=== PATIENT | female | born 1990 | race Caucasian/White ===

== ENCOUNTER 2016-02-15 22:19 | Emergency (ER) | payer OTHER ==
[2016-02-15 22:41] VITALS: BP 124/80; PULSE 86; RESP 18; TEMP 98; O2SAT 95
[2016-02-15] MEDS ORDERED: SUMATRIPTAN SUCCINATE 6 MG/0.5 ML SOL SC ONE ×2 (23:00→23:04)
[2016-02-15] MEDS ORDERED: KETOROLAC TROMETHAMINE 30 MG/ML SOL IM ONE (23:00)
[2016-02-15] MEDS ORDERED: ONDANSETRON 4 MG ODT BU ONE (23:00)
[2016-02-15] MEDS ORDERED: KETOROLAC TROMETHAMINE 30 MG/ML SOL ONE (23:04)
[2016-02-15] MEDS ORDERED: ONDANSETRON 4 MG ODT ONE (23:04)
== END 2016-02-15 23:52 | disposition home or self-care (01) ==
LOC: ED 22:19
DX: G43.909 Migraine, unspecified, not intractable, without status migrainosus (principal)
CPT/HCPCS: 99283 ×2; J1885; J3030; 96372

== ENCOUNTER 2016-12-06 12:53 | Emergency (ER) | payer OTHER ==
[2016-12-06 13:21] VITALS: BP 117/73; PULSE 94; RESP 16; TEMP 97.5; O2SAT 94
== END 2016-12-06 13:30 | disposition home or self-care (01) ==
LOC: ED 12:53
DX: T81.31XA Disruption of external operation (surgical) wound, not elsewhere classified, initial encounter (principal); Z98.51 Tubal ligation status
CPT/HCPCS: 99282